=== PATIENT | female | born 1965 | race Caucasian/White ===

== ENCOUNTER 2021-12-18 09:26 | Outpatient (CLI) | payer BC | END 2021-12-18 09:27 | disposition home or self-care (01) | LOC: RAD 09:26 | PROVIDERS: ATTEND Surgery | DX: R10.32 Left lower quadrant pain (principal); K44.9 Diaphragmatic hernia without obstruction or gangrene; K21.9 Gastro-esophageal reflux disease without esophagitis | CPT/HCPCS: 74246 ==

== ENCOUNTER → 2022-01-24 | Day surgery (SDC) | payer BC | END | disposition home or self-care (01) | LOC: SDC 07:34 | PROVIDERS: ATTEND Surgery | DX: K21.9 Gastro-esophageal reflux disease without esophagitis (principal); R10.9 Unspecified abdominal pain | CPT/HCPCS: 91034 ==

== ENCOUNTER 2022-03-14 11:42 | Outpatient (CLI) | payer BC ==
[2022-03-14 12:29] LABS: Hemoglobin 13.3 g/dL (12.0-15.5); Mean Corpuscular HGB CONC 33.7 g/dL (32.0-36.0); Mean Corpuscular Hemoglobin 34.6 pg (27.0-33.0); Mean Corpuscular Volume 102.9 fl (81.6-98.3); Mean Platelet Volume 10.6 fl (7.4-10.4); Platelet Count 228 10x3/uL (150-450); RBC Distribution Width 11.9 % (11.5-14.5); Red Blood Cell (RBC) Count 3.84 10x6/uL (3.90-5.03); White Blood Cell (WBC) Count 5.5 10x3/uL (3.5-10.5)
[2022-03-14 12:38] LABS: Anion Gap 12 mmol/L (10-20); BUN (Urea Nitrogen) 16 mg/dL (9.8-20.1); Calc. Creatinine Clearance 0 mL/min (70-130); Calcium 9.2 mg/dL (7.8-10.44); Carbon Dioxide 27 mmol/L (22-29); Chloride 104 mmol/L (98-107); Estimated GFR 84; Glucose 97 mg/dL (70-105); Potassium 4.2 mmol/L (3.5-5.1); Sodium 139 mmol/L (136-145)
== END 2022-03-14 11:43 | disposition home or self-care (01) ==
LOC: LABBT 11:42
PROVIDERS: ATTEND Surgery
DX: Z01.818 Encounter for other preprocedural examination (principal); K44.9 Diaphragmatic hernia without obstruction or gangrene; K21.9 Gastro-esophageal reflux disease without esophagitis; Z20.822 Contact with and (suspected) exposure to COVID-19
CPT/HCPCS: 80048; 85027; 87811; 93005; 93010

== ENCOUNTER 2022-03-19 08:19 | Inpatient (IN) | payer BC ==
[2022-03-15 14:07] VITALS: BMI 24.0
[2022-03-19] MEDS ORDERED: Bupivacaine/Epinephrine 0.25% 30 ML VIAL ONE (08:38)
[2022-03-19] MEDS ORDERED: Sodium Chloride 0.9% 100 ML ONE (08:47)
[2022-03-19] MEDS ORDERED: CEFAZOLIN 2 GM VIAL ONE (08:47)
[2022-03-19] MEDS ORDERED: SUGAMMADEX SODIUM 200 MG/2 ML VIAL ONE (09:04)
[2022-03-19] MEDS ORDERED: fentaNYL Citrate/PF 100 MCG/2 ML SYRINGE ONE (09:04)
[2022-03-19] MEDS ORDERED: Lidocaine 1% MPF 2 ML VIAL ONE (09:11)
[2022-03-19] MEDS ORDERED: Rocuronium Bromide 10 MG/ML (10ML VIAL) ONE (09:11)
[2022-03-19] MEDS ORDERED: Dexamethasone 20 MG/5 ML VIAL ONE (09:11)
[2022-03-19] MEDS ORDERED: PROPOFOL 200 MG/20 ML VIAL ONE (09:11)
[2022-03-19] MEDS ORDERED: Ketorolac Tromethamine 30 MG/ML VIAL ONE (09:11)
[2022-03-19] MEDS ORDERED: Ondansetron PF 4 MG/2 ML Vial ONE (09:11)
[2022-03-19] MEDS ORDERED: Phenylephrine 10 MG/ML VIAL ONE (09:11)
[2022-03-19] MEDS ORDERED: diphenhydrAMINE 50 MG/ML VIAL IVP PRN (11:09)
[2022-03-19] MEDS ORDERED: Morphine 2 MG/ML VIAL SLOW IVP PRN (11:09)
[2022-03-19] MEDS ORDERED: Hydrocodone-Acetamin 15 ML UDCUP PO PRN (11:09)
[2022-03-19] MEDS ORDERED: Ondansetron PF 4 MG/2 ML Vial IVP PRN (11:09)
[2022-03-19] MEDS ORDERED: Dextrose 5% in Water 1,000 ML IV PRN (11:09)
[2022-03-19] MEDS ORDERED: Promethazine HCl 25 MG/ML VIAL IM PRN ×2 (11:09→11:14)
[2022-03-19] MEDS ORDERED: Dextrose 50% Abboject 50 ML SYRINGE SLOW IVP PRN (11:09)
[2022-03-19] MEDS ORDERED: Meperidine HCl/PF 25 MG/ML VIAL SLOW IVP PRN (11:14)
[2022-03-19] MEDS ORDERED: Ondansetron HCl/PF 4 MG/2 ML Vial IVP PRN (11:14)
[2022-03-19] MEDS ORDERED: HYDROmorphone 2 MG/ML VIAL SLOW IVP PRN (11:14)
[2022-03-19] MEDS ORDERED: Promethazine HCl 25 MG/ML VIAL IVPB PRN (11:14)
[2022-03-19] MEDS ORDERED: Fentanyl 100 MCG/2 ML VIAL ONE (11:20)
[2022-03-19] MEDS: D5 1/2 NS w/20 mEq KCL 1,000 ML IV SCH ×2 (15:37→15:38)
[2022-03-20] MEDS: D5 1/2 NS w/20 mEq KCL 1,000 ML IV SCH (04:20)
[2022-03-20 05:54] LABS: Anion Gap 14 mmol/L (10-20); BUN (Urea Nitrogen) 12 mg/dL (9.8-20.1); Calc. Creatinine Clearance 67 mL/min (70-130); Calcium 9.1 mg/dL (7.8-10.44); Carbon Dioxide 26 mmol/L (22-29); Chloride 104 mmol/L (98-107); Estimated GFR 82; Glucose 108 mg/dL (70-105); Potassium 3.6 mmol/L (3.5-5.1); Sodium 140 mmol/L (136-145)
[2022-03-20 06:11] LABS: #Lymphocytes 2.3 thou/uL (1.20-3.40); #Monocytes 1.3 thou/uL (0.11-0.59); #Neutrophils 10.1 thou/uL (1.40-6.50); %Basophils 0.3 % (0.0-1.0); %Lymphocytes 16.7 % (21.0-51.0); %Monocytes 9.2 % (0.0-10.0); %Neutrophils 73.8 % (42.0-75.0); Hemoglobin 13.3 g/dL (12.0-16.0); MDiff Complete? YES; Macrocytosis SLIGHT = 6-15 cells (100X) (0-5/hpf); Mean Corpuscular Hemoglobin 35.1 pg (27.0-31.0); Mean Platelet Volume 8.3 fL (7.4-10.4); Platelet Count 223 thou/uL (130-400); Platelet Morphology Comment Appears Adequate; RBC Distribution Width 11.4 % (11.5-14.5); Red Blood Cell (RBC) Count 3.79 mill/uL (4.20-5.40); White Blood Cell (WBC) Count 13.6 thou/uL (4.8-10.8)
[2022-03-20] MEDS ORDERED: Pantoprazole 40 MG VIAL IVP SCH (09:00)
[2022-03-20] MEDS ORDERED: Enoxaparin Sodium 40 MG/0.4 ML SYRINGE SC SCH (09:00)
[2022-03-20] MEDS ORDERED: Acetaminophen 650 MG/20.3 ML UDCUP PO PRN (09:40)
[2022-03-20 11:55] VITALS: BP 127/75; TEMP 98.1
== END 2022-03-20 14:00 | disposition home or self-care (01) | DRG 328 ==
LOC: SDC 08:19 → OBSVTOIN 11:09 → SURG A 11:09
PROVIDERS: ADMIT Surgery; ATTEND Surgery
PROC: 0BQT4ZZ Repair Diaphragm, Percutaneous Endoscopic Approach (ICD-10-PCS; principal; 2022-03-19)
PROC: 0DV44ZZ Restriction of Esophagogastric Junction, Percutaneous Endoscopic Approach (ICD-10-PCS; 2022-03-19)
PROC: 8E0W4CZ Robotic Assisted Procedure of Trunk Region, Percutaneous Endoscopic Approach (ICD-10-PCS; 2022-03-19)
DX: K44.9 Diaphragmatic hernia without obstruction or gangrene (principal); K21.9 Gastro-esophageal reflux disease without esophagitis; L40.50 Arthropathic psoriasis, unspecified; Z20.822 Contact with and (suspected) exposure to COVID-19; Z88.8 Allergy status to other drugs, medicaments and biological substances; Z88.2 Allergy status to sulfonamides; Z90.710 Acquired absence of both cervix and uterus; Z79.82 Long term (current) use of aspirin; Z79.899 Other long term (current) drug therapy; Z80.9 Family history of malignant neoplasm, unspecified; Z90.49 Acquired absence of other specified parts of digestive tract; Z82.49 Family history of ischemic heart disease and other diseases of the circulatory system
CPT/HCPCS: 36415; 80048; 85025; 94760; C9113; J0690; J1100; J1650; J1885; J2370; J2405; J2704; J3010; J3480; J3490